=== PATIENT | female | born 1985 | race Caucasian/White ===

== ENCOUNTER 2018-05-14 13:31 | Emergency (ER) | payer MEDICAID | END 2018-05-14 15:12 | disposition home or self-care (01) | LOC: FTE 15:12 → E/R 13:31 | DX: O99.89 Other specified diseases and conditions complicating pregnancy, childbirth and the puerperium (principal); R07.9 Chest pain, unspecified; Z3A.32 32 weeks gestation of pregnancy | CPT/HCPCS: 93005; 99283-25 ==